=== PATIENT | male | born 1985 | race American Indian/Alaskan Native ===

== ENCOUNTER 2018-03-27 08:50 | Emergency (ER) | payer SELFPAY ==
[2018-03-27 09:09] VITALS: BP 135/90
--- NOTE | 2018-03-27 09:57 | Ultrasound Report ---
Testicle ultrasound: Recurrent left testicular pain. The right testicle measures 2.1 x 2.5 x 4 cm in size. There is normal blood flow with color imaging and Doppler and a normal echogenic pattern. The epididymis measures 1 cm in maximum dimension. The left testicle measures 2 x 2 0.9 x 4 cm. It also has a normal echogenic pattern with normal blood flow. The epididymis measures 11 mm in size. A very small amount of fluid is identified around the epididymis. Impressions: No significant pathology identified.
--- NOTE | 2018-03-27 11:13 | Emergency Department Report ---
ED General Adult HPI - General Chief complaint: Urogenital-Male Stated complaint: SCROTUM PAIN Time Seen by Provider: 03/27/18 10:57 Source: patient Mode of arrival: Ambulatory Limitations: No Limitations - History of Present Illness Initial comments: Patient presents to the emergency department with a chief complaint of testicular pain left side for the last week. Patient was seen in the emergency department recently and given doxycycline without relief. Patient denies any injury to his testicles or any new vigorous activity -: Sudden Location: genitals Severity scale (0 -10): 5 Quality: aching Consistency: constant Improves with: none Worsens with: none Associated Symptoms: denies other symptoms Treatments Prior to Arrival: none - Related Data Previous Rx's Medication Instructions Recorded Last Taken Type Acetaminophen [Tylenol Arthritis] 650 mg PO Q6HR PRN #30 tablet.er 02/02/18 Unknown Rx Pantoprazole [Protonix TAB] 20 mg PO QDAY #30 tablet.dr 02/02/18 Unknown Rx Doxycycline Hyclate [Doxycycline 100 mg PO Q12HR 14 Days #28 tab 03/16/18 Unknown Rx Hyclate TAB] Ibuprofen [Motrin] 800 mg PO Q8HR PRN #30 tablet 03/27/18 Unknown Rx levoFLOXacin [Levaquin TAB] 500 mg PO BID #20 tablet 03/27/18 Unknown Rx traMADol [Ultram] 50 mg PO Q6HR PRN #20 tablet 03/27/18 Unknown Rx Allergies Allergy/AdvReac Type Severity Reaction Status Date / Time No Known Allergies Allergy Verified 03/16/18 09:20 ED Review of Systems ROS: Stated complaint: SCROTUM PAIN Other details as noted in HPI Comment: All other systems reviewed and negative Constitutional: denies: chills, fever Eyes: denies: eye pain, eye discharge, vision change ENT: denies: ear pain, throat pain Respiratory: denies: cough, shortness of breath, wheezing Cardiovascular: denies: chest pain, palpitations Endocrine: no symptoms reported Gastrointestinal: denies: abdominal pain, nausea, diarrhea Genitourinary: testicular pain. denies: urgency, dysuria Musculoskeletal: denies: back pain, joint swelling, arthralgia Skin: denies: rash, lesions Neurological: denies: headache, weakness, paresthesias Psychiatric: denies: anxiety, depression Hematological/Lymphatic: denies: easy bleeding, easy bruising ED Past Medical Hx - Past Medical History Previous Medical History?: Yes - Surgical History Past Surgical History?: Yes - Social History Smoking Status: Never Smoker Substance Use Type: None - Medications Home Medications: Home Medications Medication Instructions Recorded Confirmed Last Taken Type Acetaminophen [Tylenol Arthritis] 650 mg PO Q6HR PRN #30 tablet.er 02/02/18 Unknown Rx Pantoprazole [Protonix TAB] 20 mg PO QDAY #30 tablet.dr 02/02/18 Unknown Rx Doxycycline Hyclate [Doxycycline 100 mg PO Q12HR 14 Days #28 tab 03/16/18 Unknown Rx Hyclate TAB] Ibuprofen [Motrin] 800 mg PO Q8HR PRN #30 tablet 03/27/18 Unknown Rx levoFLOXacin [Levaquin TAB] 500 mg PO BID #20 tablet 03/27/18 Unknown Rx traMADol [Ultram] 50 mg PO Q6HR PRN #20 tablet 03/27/18 Unknown Rx ED Physical Exam - General Limitations: No Limitations General appearance: alert, in no apparent distress - Head Head exam: Present: atraumatic, normocephalic - Eye Eye exam: Present: normal appearance, PERRL, EOMI - ENT ENT exam: Present: mucous membranes moist - Neck Neck exam: Present: normal inspection - Respiratory Respiratory exam: Present: normal lung sounds bilaterally. Absent: respiratory distress, wheezes, rales, rhonchi - Cardiovascular Cardiovascular Exam: Present: regular rate, normal rhythm. Absent: systolic murmur, diastolic murmur, rubs, gallop - GI/Abdominal GI/Abdominal exam: Present: soft, normal bowel sounds. Absent: distended, tenderness - Rectal Rectal exam: Present: deferred - exam: Present: other (deferred) - Extremities Exam Extremities exam: Present: normal inspection - Back Exam Back exam: Present: normal inspection - Neurological Exam Neurological exam: Present: alert, oriented X3 - Psychiatric Psychiatric exam: Present: normal affect, normal mood - Skin Skin exam: Present: warm, dry, intact, normal color. Absent: rash ED Course Vital Signs 03/27/18 09:04 Temperature 97.8 F Pulse Rate 64 Respiratory 18 Rate Blood Pressure 135/90 O2 Sat by Pulse 97 Oximetry ED Medical Decision Making - Radiology Data Radiology results: report reviewed - Medical Decision Making Discussed results with the patient Critical care attestation.: If time is entered above; I have spent that time in minutes in the direct care of this critically ill patient, excluding procedure time. ED Disposition Clinical Impression: Epididymitis, Testicular pain, left Disposition: TO HOME OR SELFCARE Is pt being admited?: No Does the pt Need Aspirin: No Condition: Stable Instructions: Epididymitis (ED) Additional Instructions: return if worse Prescriptions: Ibuprofen [Motrin] 800 mg PO Q8HR PRN #30 tablet PRN Reason: pain levoFLOXacin [Levaquin TAB] 500 mg PO BID #20 tablet traMADol [Ultram] 50 mg PO Q6HR PRN #20 tablet PRN Reason: Pain Referrals: LAMONT TREVIÑO MD [Primary Care Provider] - 3-5 Days Time of Disposition: 11:12
== END 2018-03-27 11:28 | disposition home or self-care (01) ==
LOC: ED 08:50
DX: N45.1 Epididymitis (principal)
CPT/HCPCS: 93975

== ENCOUNTER 2018-05-19 06:08 | Day surgery (SDC) | payer OTHER ==
[2018-05-19] MEDS ORDERED: NACL 0.9% 500 ML 500 ML IV SCH (07:00)
[2018-05-19 07:05] LABS: Basophils # (Auto) 0.1 K/mm3 (0.0-0.1); Basophils % (Auto) 1.7 % (0.0-1.8); Eosinophils # (Auto) 0.2 K/mm3 (0.0-0.4); Eosinophils % (Auto) 4.2 % (0.0-4.3); Hemoglobin 16.3 gm/dl (11.8-15.2); Lymphocytes # (Auto) 2.6 K/mm3 (1.2-5.4); Lymphocytes % (Auto) 44.6 % (13.4-35.0); Monocytes # (Auto) 0.3 K/mm3 (0.0-0.8); Monocytes % (Auto) 5.1 % (0.0-7.3)
[2018-05-19 07:13] LABS: INR 0.82 (0.87-1.13)
[2018-05-19 07:20] LABS: BUN/Creatinine Ratio 11; Blood Urea Nitrogen 12 mg/dL (9-20); Calcium 9.4 mg/dL (8.4-10.2); Hemolysis Index 13
[2018-05-19 07:28] LABS: Hematocrit 47.8 % (35.5-45.6); Mean Corpuscular HGB Conc 34 % (32-34); Mean Corpuscular Hemoglobin 31 pg (28-32); Mean Corpuscular Volume 91 fl (84-94); Platelet Count 229 K/mm3 (140-440); Red Blood Count 5.28 M/mm3 (3.65-5.03); Red Cell Distribution Width 13.4 % (13.2-15.2)
[2018-05-19] MEDS ORDERED: ECOTRIN PO ONE (08:00)
[2018-05-19] MEDS ORDERED: HEPARIN 10,000 UNITS/10 ML ONE (08:39)
[2018-05-19] MEDS ORDERED: CALAN ONE (08:39)
[2018-05-19] MEDS ORDERED: HEPARIN/NS 5000 UNIT/500ML(CATH LAB) 1,000 ML IR ONE (08:39)
[2018-05-19] MEDS ORDERED: NITROGLYCERIN SYRINGE 3 ML ONE (08:40)
[2018-05-19] MEDS ORDERED: SUBLIMAZE ONE (08:40)
[2018-05-19] MEDS ORDERED: VERSED ONE (08:40)
[2018-05-19] MEDS ORDERED: XYLOCAINE 2% INFILTRATI ONE (08:40)
--- NOTE | 2018-05-19 10:34 | Cardiac Catherization Report ---
REFERRING PHYSICIAN: Dr. Mora. INDICATION FOR PROCEDURE: The patient is a 32-year-old -[place] male with recurrent chest pain, typical and atypical features, referred for left heart catheterization by Dr. Mora. Risks, benefits, and alternatives discussed at length prior to obtaining informed consent. PROCEDURE IN DETAIL: The patient was brought to the catheterization lab in a postabsorptive state, prepped and draped in a sterile fashion. Fred's test in the right hand was normal. A 2 mL of 2% lidocaine was used to anesthetize the right wrist. A standard 6-Swazi hydrophilic sheath used to cannulate right radial artery via modified Seldinger technique. All exchanges performed to exchange a J-tip guidewire. JL3.5 catheter used to engage the left main. No dampening or ventricularization. Cineangiography performed in all projections. JR4 catheter was used to cross the aortic valve under fluoroscopic guidance. Left ventriculography performed 30 SLADE and 30 MARGIE projections via hand injections, catheter flushed. Manual pullback performed with continuous pressure monitoring. Catheter used to engage the right coronary. No dampening or ventricularization. Cineangiography performed in all projections. Next, a pigtail catheter was used for root aortography in the MARGIE projection with power injector. Next, catheter removed. Guidewire sheath removed. Manual pressure to achieve hemostasis. DATA: Aortic pressure is 100/70, LV pressure is 100. LVEDP of 18 mmHg. Left ventriculography reveals normal systolic performance with estimated ejection fraction of 55%-60%. The patient remained in normal sinus rhythm throughout the procedure. Left main is a short vessel, no significant disease, bifurcates left anterior descending and left circumflex. LAD is a moderate sized vessel, courses anterior intergroove, wraps around the apex, no significant disease. Left circumflex is a moderate sized vessel, courses AV groove. No significant disease. Right coronary is a moderate sized vessel, courses AV groove. No significant disease. Root aortography reveals normal contour. Normal great vessel anatomy, no dissection or penetrating aortic ulcer. I directly supervised the administration of moderate sedation from 9:16 to 9:42 a.m. with Versed and fentanyl. CONCLUSIONS: 1. No angiographic evidence of significant epicardial coronary artery disease in this right dominant system. 2. Normal left ventricular systolic performance, estimated ejection fraction of 55% to 60%. 3. No evidence of aortic stenosis. 4. Normal LVEDP. 5. Normal root aortography without evidence of dissection, penetrating aortic ulcer, or aortic insufficiency. The patient is clinically stable, chest pain free. We will check a V/Q scan due to recurrent chest pain and aforementioned findings. Follow up with Dr. Mora in the office. Standard radial care. Discussed my findings with the patient and his at length. All questions and concerns were addressed. JOB# [id number] SBM/NTS
--- NOTE | 2018-05-19 10:59 | XRay Report ---
AP CHEST: HISTORY: Chest pain, shortness of breath AP view of the chest demonstrates a normal mediastinal and cardiac contour with clear lungs and normal bony and soft tissue structures. IMPRESSION: Unremarkable AP chest. No change since 02/02/18.
--- NOTE | 2018-05-19 11:46 | Nuclear Medicine Report ---
LUNG SCAN, VENTILATION AND PERFUSION: History: Chest pain. Technique: 5mci of Tc99m MAA was infused for the perfusion images. 15mci XE 133 gas was inhaled for the ventilatory images. Correlation is made with a chest x-ray dated 05/19/18. Findings: Inhalation of Xenon gas demonstrates a normal distribution of the activity throughout both lungs. The wash out phases show no focal retention of activity. After injection of Technetium 99m macroaggregated albumin gamma camera imaging of the lungs in multiple projections demonstrates normal pulmonary contours with a homogeneous distribution of activity. No focal areas of perfusion deficiency are identified. IMPRESSION: Low probability for pulmonary embolus.
[2018-05-19 12:16] VITALS: BP 121/77
== END 2018-05-19 12:35 | disposition home or self-care (01) ==
LOC: CATHLABREC 06:08
PROVIDERS: ATTEND Internal Medicine
DX: R07.89 Other chest pain (principal); R06.02 Shortness of breath; I26.99 Other pulmonary embolism without acute cor pulmonale; Z79.899 Other long term (current) drug therapy
CPT/HCPCS: 36415; 71045; 78582; 80048; 85025; 85610; 85730; 93005; 93010; 93458; 93567; 99156; 99157; A9540; A9558; C1894; J1644; J2250; J3010; J7040; Q9967

== ENCOUNTER 2019-08-24 07:15 | Emergency (ER) | payer OTHER ==
--- NOTE | 2019-08-24 08:10 | Ultrasound Report ---
EXAMINATION: Testicular/scrotal ultrasound, 08/24/2019 CLINICAL INFORMATION: The patient reports left testicular pain for several days. He denies pain at th e time of today's evaluation. COMPARISON: Testicular/scrotal ultrasound, 03/27/2018 FINDINGS: Both testicles are normal in size and echogenicity. The right testicle measures 3.9 x 2.3 x 2.9 cm. T he left testicle measures 4.3 x 2.0 x 3.1 cm. There is symmetric Doppler flow demonstrated to both testicles. No abnormal fluid collection is identified. IMPRESSION: No sonographic abnormality of the testicles or scrotum. Signer Name: Berenice Hatch MD Signed: 08/24/2019 8:06 AM Workstation Name: [email or web address]
[2019-08-24 08:49] LABS: Mucus,Urine 1+ /HPF; WBC,Urine < 1.0 /HPF (0.0-6.0)
[2019-08-24 08:57] LABS: Bilirubin,Urine Negative (Negative); Color,Urine Yellow (Yellow)
[2019-08-24 08:58] LABS: Blood,Urine Negative (Negative); Ictotest,Urine Negative (Negative); Protein,Urine <15 mg/dL mg/dL (Negative); Urobilinogen,Urine < 2.0 mg/dL (<2.0)
--- NOTE | 2019-08-24 09:44 | Emergency Department Report ---
ED Male HPI - General Chief complaint: Urogenital-Male Stated complaint: LEFT TESTICLE PAIN Time Seen by Provider: 08/24/19 09:15 Source: patient Mode of arrival: Ambulatory Limitations: No Limitations - History of Present Illness Initial comments: This is a 33-year-old male presents the ED complaining of left-sided testicular pain times 3 to 4 days. Patient denies dysuria, penile discharge, blood in the urine or any other symptoms. Patient states that pain is localized to left testicle only and not denies. Patient states he saw her doctor at a clinic yesterday that prescribed him Motrin but he has not picked up The prescription MD Complaint: testicle pain - Related Data Previous Rx's Medication Instructions Recorded Last Taken Type Ciprofloxacin HCl [Ciprofloxacin 500 mg PO Q12HR #10 tab 08/24/19 Unknown Rx TAB] Allergies Allergy/AdvReac Type Severity Reaction Status Date / Time No Known Allergies Allergy Verified 03/16/18 09:20 ED Review of Systems ROS: Stated complaint: LEFT TESTICLE PAIN Other details as noted in HPI Comment: All other systems reviewed and negative ED Past Medical Hx - Past Medical History Previous Medical History?: No Hx HIV: No - Surgical History Past Surgical History?: No - Social History Smoking Status: Never Smoker Substance Use Type: None - Medications Home Medications: Home Medications Medication Instructions Recorded Confirmed Last Taken Type Ciprofloxacin HCl [Ciprofloxacin 500 mg PO Q12HR #10 tab 08/24/19 Unknown Rx TAB] ED Physical Exam - General Limitations: No Limitations General appearance: alert, in no apparent distress - Head Head exam: Present: atraumatic, normocephalic - Eye Eye exam: Present: normal appearance - ENT ENT exam: Present: mucous membranes moist - Neck Neck exam: Present: normal inspection - Respiratory Respiratory exam: Present: normal lung sounds bilaterally. Absent: respiratory distress - Cardiovascular Cardiovascular Exam: Present: regular rate, normal rhythm. Absent: systolic murmur, diastolic murmur, rubs, gallop - GI/Abdominal GI/Abdominal exam: Present: soft, normal bowel sounds. Absent: distended, tenderness - Rectal Rectal exam: Present: deferred - exam: Present: normal inspection, testicular tenderness (Mild left-sided), circumcision. Absent: urethral discharge, scrotal swelling External exam: Present: normal external exam. Absent: erythema, swelling, lesions, lacerations - Extremities Exam Extremities exam: Present: normal inspection - Back Exam Back exam: Present: normal inspection - Neurological Exam Neurological exam: Present: alert, oriented X3 - Psychiatric Psychiatric exam: Present: normal affect, normal mood - Skin Skin exam: Present: warm, dry, intact, normal color. Absent: rash ED Course Vital Signs 08/24/19 08/24/19 07:15 09:20 Temperature 97.6 F Pulse Rate 68 Respiratory 18 18 Rate Blood Pressure 128/90 O2 Sat by Pulse 96 99 Oximetry ED Medical Decision Making - Radiology Data Radiology results: report reviewed, image reviewed EXAMINATION: Testicular/scrotal ultrasound, 08/24/2019 CLINICAL INFORMATION: The patient reports left testicular pain for several days. He denies pain at the time of today's evaluation. COMPARISON: Testicular/scrotal ultrasound, 03/27/2018 FINDINGS: Both testicles are normal in size and echogenicity. The right testicle measures 3.9 x 2.3 x 2.9 cm. The left testicle measures 4.3 x 2.0 x 3.1 cm. There is symmetric Doppler flow demonstrated to both testicles. No abnormal fluid collection is identified. IMPRESSION: No sonographic abnormality of the testicles or scrotum. Signer Name: Berenice Hatch MD Signed: 08/24/2019 8:06 AM Workstation Name: [id number] Transcribed By: EB Dictated By: Berenice Hatch MD Electronically Authenticated By: Berenice Hatch MD Signed Date/Time: 08/24/19 0806 - Medical Decision Making 33-year-old male presents with left-sided testicular pain. ED course: Is obtained, urinalysis negative Testicular ultrasound was completed with normal findings see report above Discussed findings with the patient. Discussed with patient to take Motrin as needed for pain. Discussed the follow-up with the health department for further STD testing. Patient's alert and oriented times 3. Vital signs are normal patient is in no acute discharge. Patient will be discharged home with instructions. Critical care attestation.: If time is entered above; I have spent that time in minutes in the direct care of this critically ill patient, excluding procedure time. ED Disposition Clinical Impression: Testicular pain, left Disposition: DC-01 TO HOME OR SELFCARE Is pt being admited?: No Does the pt Need Aspirin: No Condition: Stable Instructions: Testicle Pain (ED) Additional Instructions: Make sure to follow up with the primary care physician as discussed. Take all your medications as you've been prescribed. If you have any worsening symptoms or develop new symptoms please return to ED immediately. Prescriptions: Ciprofloxacin HCl [Ciprofloxacin TAB] 500 mg PO Q12HR #10 tab Referrals: PRIMARY CARE, [Primary Care Provider] - 3-[address] [facility] [Outside] - 3-5 Days [facility] [Outside] - 3-5 Days Forms: Work/School Release Form(ED) Time of Disposition: 09:51
[2019-08-24 10:30] VITALS: BP 142/71
== END 2019-08-24 10:21 | disposition home or self-care (01) ==
LOC: ED 07:15
DX: N50.812 Left testicular pain (principal); Z79.899 Other long term (current) drug therapy
CPT/HCPCS: 81001; 93975

== ENCOUNTER 2019-11-17 07:12 | Emergency (ER) | payer OTHER ==
[2019-11-17 07:22] VITALS: BP 140/96
--- NOTE | 2019-11-17 07:47 | Emergency Department Report ---
ED General Adult HPI - General Chief complaint: Pain General Stated complaint: right groin pain Time Seen by Provider: 11/17/19 07:28 Source: patient Mode of arrival: Ambulatory Limitations: No Limitations - History of Present Illness Initial comments: 34-year-old male presents to the emergency room complaining of right groin pain started yesterday the pain is relieved with ibuprofen. He denies any trauma or heavy lifting. The pain worsens with palpation but does not change with movement. Patient denies testicular pain he denies painful urination or any difficulties with urinating, denies nausea vomiting no abdominal pain no penile discharge no rashes or lesion. -: days(s) (1) Quality: aching Consistency: intermittent Improves with: medication (ibuprofen ) Worsens with: other (palpation) Associated Symptoms: denies: denies other symptoms, confusion, chest pain, cough, diaphoresis, headaches, loss of appetite, malaise, nausea/vomiting, rash, shortness of breath, syncope, weakness, other Treatments Prior to Arrival: NSAID - Related Data Previous Rx's Medication Instructions Recorded Last Taken Type Ciprofloxacin HCl [Ciprofloxacin 500 mg PO Q12HR #10 tab 08/24/19 Unknown Rx TAB] Ibuprofen [Motrin] 600 mg PO Q8H PRN #20 tablet 11/17/19 Unknown Rx Allergies Allergy/AdvReac Type Severity Reaction Status Date / Time No Known Allergies Allergy Verified 03/16/18 09:20 ED Review of Systems ROS: Stated complaint: LOWER ABD PAIN Other details as noted in HPI Comment: All other systems reviewed and negative Constitutional: denies: chills, fever, malaise Eyes: denies: eye pain, eye discharge, vision change ENT: denies: ear pain, throat pain, dental pain Respiratory: denies: cough, orthopnea Cardiovascular: denies: chest pain, palpitations, dyspnea on exertion, orthopnea Endocrine: denies: excessive sweating, flushing, unexplained weight gain Gastrointestinal: denies: abdominal pain, nausea, vomiting, constipation, hematemesis, melena Genitourinary: denies: urgency, dysuria, frequency, hematuria, discharge, testicular pain, testicular mass, other Skin: denies: rash, lesions, change in color Neurological: denies: headache, weakness, confusion Psychiatric: denies: as per HPI, depression ED Past Medical Hx - Past Medical History Previous Medical History?: No Hx HIV: No - Surgical History Past Surgical History?: No - Social History Smoking Status: Never Smoker Substance Use Type: Non Opiate Pain - Medications Home Medications: Home Medications Medication Instructions Recorded Confirmed Last Taken Type Ciprofloxacin HCl [Ciprofloxacin 500 mg PO Q12HR #10 tab 08/24/19 Unknown Rx TAB] Ibuprofen [Motrin] 600 mg PO Q8H PRN #20 tablet 11/17/19 Unknown Rx ED Physical Exam - General Limitations: No Limitations General appearance: alert, in no apparent distress - Eye Eye exam: Present: normal appearance - ENT ENT exam: Present: mucous membranes moist - Respiratory Respiratory exam: Present: normal lung sounds bilaterally - Cardiovascular Cardiovascular Exam: Present: regular rate, normal heart sounds - GI/Abdominal GI/Abdominal exam: Present: soft, normal bowel sounds. Absent: distended, tenderness - exam: Present: normal inspection, other (right groin tenderness with palpation, no mass palpated, no signs of henia, no bulging noted with forceful cough ). Absent: testicular tenderness, urethral discharge, scrotal swelling, vertical testicular lie - Extremities Exam Extremities exam: Present: normal inspection, normal capillary refill, other (bilateral straight leg raises does not cause pain ) - Back Exam Back exam: Present: normal inspection - Neurological Exam Neurological exam: Present: alert, oriented X3 - Psychiatric Psychiatric exam: Present: normal affect - Skin Skin exam: Present: warm, dry, intact, normal color ED Course Vital Signs 11/17/19 07:20 Temperature 98.3 F Pulse Rate 71 Respiratory 18 Rate Blood Pressure 140/96 O2 Sat by Pulse 97 Oximetry ED Medical Decision Making - Medical Decision Making 34-year-old male with right groin pain not associated with testicular pain swelling rashes or lesions . He has no abdominal pain. No GI or unriary symptoms. Pain is relieved with ibuprofen suggesting that it is most likely a strain. Urinalysis neg for blood or signs of infection. On examination there are no signs of hernia no masses no rashes no swelling,mild tenderness present with deep palpation . Critical Care Time: No Critical care attestation.: If time is entered above; I have spent that time in minutes in the direct care of this critically ill patient, excluding procedure time. ED Disposition Clinical Impression: Groin injury Qualifiers: Encounter type: initial encounter Qualified Code(s): S39.91XA - Unspecified injury of abdomen, initial encounter Disposition: DC-01 TO HOME OR SELFCARE Is pt being admited?: No Does the pt Need Aspirin: No Condition: Stable Instructions: Groin Strain (ED) Additional Instructions: No heavy lifting apply warm compress continue to take ibuprofen as needed for pain return to the emergency room for any increasing pain swelling testicular pain fever chills abdominal pain inability to urinate Prescriptions: Ibuprofen [Motrin] 600 mg PO Q8H PRN #20 tablet PRN Reason: Pain Referrals: PRIMARY CAREMD [Primary Care Provider] - 3-5 Days KAY HODGES MD [Staff Physician] - 3-5 Days Time of Disposition: 08:28
[2019-11-17] MEDS ORDERED: IBUPROFEN 800 MG TAB PO ONE (07:51)
[2019-11-17 07:57] LABS: Bilirubin,Urine NEG (Negative); Blood,Urine NEG (Negative); Color,Urine Yellow (Yellow); Mucus,Urine FEW /HPF; Protein,Urine <15 mg/dL mg/dL (Negative); Urobilinogen,Urine < 2.0 mg/dL (<2.0); WBC,Urine < 1.0 /HPF (0.0-6.0)
== END 2019-11-17 08:38 | disposition home or self-care (01) ==
LOC: ED 07:12
DX: S39.91XA Unspecified injury of abdomen, initial encounter (principal); X58.XXXA Exposure to other specified factors, initial encounter; Y93.89 Activity, other specified; Y92.89 Other specified places as the place of occurrence of the external cause; Y99.8 Other external cause status
CPT/HCPCS: 81001

== ENCOUNTER 2019-12-30 07:31 | Emergency (ER) | payer OTHER ==
[2019-12-30 07:33] VITALS: BP 135/95
[2019-12-30 08:20] LABS: Bilirubin,Urine NEG (Negative); Blood,Urine NEG (Negative); Color,Urine Yellow (Yellow); Mucus,Urine 1+ /HPF; Protein,Urine <15 mg/dL mg/dL (Negative); Urobilinogen,Urine < 2.0 mg/dL (<2.0); WBC,Urine < 1.0 /HPF (0.0-6.0)
--- NOTE | 2019-12-30 09:28 | Ultrasound Report ---
Ultrasound scrotum INDICATION: Testicular pain COMPARISON: 08/24/2019 FINDINGS: Right testicle measures 4.5 cm in length. The left testicle measures 4.2 cm in length. Ther e is arterial flow in both testicles. No mass lesions are seen. There is no free fluid. There has bee n no significant interval change. IMPRESSION: There is normal arterial flow in both testicles. Ultrasound is within normal limits. Signer Name: Frank Werner MD Signed: 12/30/2019 9:23 AM Workstation Name: [id number]
--- NOTE | 2019-12-30 10:06 | Emergency Department Report ---
ED Male HPI - General Chief complaint: Abdominal Pain Stated complaint: ABD PAIN Time Seen by Provider: 12/30/19 07:37 Source: patient Mode of arrival: Ambulatory Limitations: No Limitations - History of Present Illness Initial comments: This is a 34-year-old male nontoxic, well nourished in appearance, no acute signs of distress presents to the ED with c/o of left testicular pain x1 day. Patient stated that he had oral sex and developed pain. Patient denies any injuries or trauma. Patient denies any penile discharge, bleeding, ulcers or lesions. Patient denies any back pain. Patient denies any pelvic or abdominal pain. Patient denies any nausea, vomiting, chest pain, shortness of breathe, fever, chills, headache, back pain, numbness, tingling, stiff neck. Patient denies any urinary symptoms. Patient denies any allergies or PMH. MD Complaint: testicle pain (left) -: days(s) Location: left testicle Radiation: none Severity: mild Severity scale (0 -10): 3 Quality: aching Consistency: constant Improves with: none Worsens with: none denies other symptoms. denies: discharge, swelling, mass, rash, urinary retention, blood in urine, dysuria, fever, nausea/vomiting, incontinence - Related Data Previous Rx's Medication Instructions Recorded Last Taken Type Ciprofloxacin HCl [Ciprofloxacin 500 mg PO Q12HR #10 tab 08/24/19 Unknown Rx TAB] Ibuprofen [Motrin] 600 mg PO Q8H PRN #20 tablet 11/17/19 Unknown Rx Allergies Allergy/AdvReac Type Severity Reaction Status Date / Time No Known Allergies Allergy Verified 03/16/18 09:20 ED Review of Systems ROS: Stated complaint: ABD PAIN Other details as noted in HPI Comment: All other systems reviewed and negative Constitutional: denies: chills, fever Eyes: denies: eye pain, eye discharge, vision change ENT: denies: ear pain, throat pain Respiratory: denies: cough, shortness of breath, wheezing Cardiovascular: denies: chest pain, palpitations Endocrine: no symptoms reported Gastrointestinal: denies: abdominal pain, nausea, diarrhea Genitourinary: testicular pain. denies: urgency, dysuria, frequency, hematuria, discharge, testicular mass Musculoskeletal: denies: back pain, joint swelling, arthralgia Skin: denies: rash, lesions Neurological: denies: headache, weakness, paresthesias Psychiatric: denies: anxiety, depression Hematological/Lymphatic: denies: easy bleeding, easy bruising ED Past Medical Hx - Past Medical History Previous Medical History?: No Hx HIV: No - Surgical History Past Surgical History?: No - Social History Smoking Status: Never Smoker Substance Use Type: None - Medications Home Medications: Home Medications Medication Instructions Recorded Confirmed Last Taken Type Ciprofloxacin HCl [Ciprofloxacin 500 mg PO Q12HR #10 tab 08/24/19 Unknown Rx TAB] Ibuprofen [Motrin] 600 mg PO Q8H PRN #20 tablet 11/17/19 Unknown Rx ED Physical Exam - General Limitations: No Limitations General appearance: alert, in no apparent distress - Head Head exam: Present: atraumatic, normocephalic - Eye Eye exam: Present: normal appearance - Neck Neck exam: Present: normal inspection, full ROM. Absent: tenderness, meningismus, lymphadenopathy - Respiratory Respiratory exam: Absent: respiratory distress - Cardiovascular Cardiovascular Exam: Present: regular rate - GI/Abdominal GI/Abdominal exam: Present: soft, normal bowel sounds. Absent: distended, tenderness, guarding, rebound, rigid, diminished bowel sounds - exam: Present: normal inspection. Absent: testicular tenderness, urethral discharge, scrotal swelling, vertical testicular lie, circumcision External exam: Present: normal external exam. Absent: erythema, swelling, lesions, lacerations, ecchymosis, bleeding - Extremities Exam Extremities exam: Present: full ROM - Back Exam Back exam: Present: normal inspection, full ROM. Absent: tenderness, CVA tenderness (R), CVA tenderness (L), muscle spasm, paraspinal tenderness, vertebral tenderness, rash noted - Neurological Exam Neurological exam: Present: alert, oriented X3, normal gait - Psychiatric Psychiatric exam: Present: normal affect, normal mood - Skin Skin exam: Present: warm, dry, intact, normal color. Absent: rash ED Course Vital Signs 12/30/19 07:32 Temperature 98.1 F Pulse Rate 69 Respiratory 20 Rate Blood Pressure 135/95 [Right] O2 Sat by Pulse 100 Oximetry - Reevaluation(s) Reevaluation #1: 12/30/19 10:09 Patient is speaking in full sentences with no signs of distress noted. ED Medical Decision Making - Lab Data Lab Results 12/30/19 Range/Units 07:56 Urine Color Yellow (Yellow) Urine Turbidity Clear (Clear) Urine pH 6.0 (5.0-7.0) Ur Specific [place] 1.025 (1.003-1.030) Urine Protein <15 mg/dl (Negative) mg/dL Urine Glucose (UA) Neg (Negative) mg/dL Urine Ketones Neg (Negative) mg/dL Urine Blood Neg (Negative) Urine Nitrite Neg (Negative) Urine Bilirubin Neg (Negative) Urine Urobilinogen < 2.0 (<2.0) mg/dL Ur Leukocyte Esterase Neg (Negative) Urine WBC (Auto) < 1.0 (0.0-6.0) /HPF Urine RBC (Auto) 6.0 (0.0-6.0) /HPF Urine Mucus 1+ /HPF - Radiology Data Referring Physician: OLGA LIDIA ALLAN Patient Name: AYESHA GARCIA Date of : 1985 Sex: Male Report Date: 2019-12-30 Report Status: [place] [address] Ultrasound Report Signed Patient: AYESHA GARCIA MR#: [id number] : 1985 Acct:[id number] Age/Sex: 34 / M ADM Date: 12/30/19 Loc: ED Attending Dr: Ordering Physician: OLGA LIDIA ALLAN NP Date of Service: 12/30/19 Procedure(s): US testicular doppler comp Accession Number(s): [id number] cc: OLGA LIDIA ALLAN NP Ultrasound scrotum INDICATION: Testicular pain COMPARISON: 08/24/2019 FINDINGS: Right testicle measures 4.5 cm in length. The left testicle measures 4.2 cm in length. There is arterial flow in both testicles. No mass lesions are seen. There is no free fluid. There has been no significant interval change. IMPRESSION: There is normal arterial flow in both testicles. Ultrasound is within normal limits. Signer Name: Frank Werner MD Signed: 12/30/2019 9:23 AM Workstation Name: [id number] Transcribed By: Dictated By: Frank Werner MD Electronically Authenticated By: Frank Werner MD Signed Date/Time: 12/30/19922 DD/ 0 TD/TT: - Medical Decision Making 34-year-old male the presents with left testicular pain. Patient is stable and was examined by me. Exam is unremarkable. Urine unremarkable. Ultrasound was notified to the patient with no questions noted by the patient. Patient was instructed to follow-up with a primary care doctor in 3-5 days or if symptoms worsen and continue return to emergency room as soon as possible. At time of discharge, the patient does not seem toxic or ill in appearance. No acute signs of distress noted. Patient agrees to discharge treatment plan of care. No further questions noted by the patient. Critical care attestation.: If time is entered above; I have spent that time in minutes in the direct care of this critically ill patient, excluding procedure time. ED Disposition Clinical Impression: Left testicular pain Disposition: DC-01 TO HOME OR SELFCARE Is pt being admited?: No Does the pt Need Aspirin: No Condition: Stable Instructions: Testicular Self-Exam, [id number] Additional Instructions: Follow-up with a primary care doctor in 3-5 days or if symptoms worsen and continue return to emergency room as soon as possible. Referrals: PRIMARY MD VJ [Primary Care Provider] - 3-5 Days KAY HODGES MD [Staff Physician] - 3-5 Days Forms: Work/School Release Form(ED)
== END 2019-12-30 10:19 | disposition home or self-care (01) ==
LOC: ED 07:31
DX: N50.812 Left testicular pain (principal)
CPT/HCPCS: 81001; 93975

== ENCOUNTER 2020-03-01 08:07 | Emergency (ER) | payer MEDICAID, OTHER ==
[2020-03-01] MEDS ORDERED: dexAMETHasone 20 MG/5 ML VIAL IM ONE (08:24)
[2020-03-01] MEDS ORDERED: KETOROLAC 30 MG/1 ML INJ IM ONE (08:24)
--- NOTE | 2020-03-01 08:43 | Emergency Department Report ---
ED Headache HPI - General Chief Complaint: Headache Stated Complaint: HEADACHE/SLEEPLESS - History of Present Illness Initial Comments: 34-year-old -[place] male patient presents with complaints of frontal headache x3 days. Patient states due to the headache he is unable to sleep. He describes the headache as dull and constant and rates it at a 10/10 in severity. He denies any history of migraines, head trauma, loss of consciousness, vision changes, nausea/vomiting, dizziness, confusion, memory loss, numbness/tingling/weakness in his limbs, or difficulty with speech/ambulation. Patient states headache has not improved with Tylenol. He denies any past medical history Timing/Duration: 1 week Quality: severe Head Injury Location: frontal Recent Head Trauma: no recent headache/trauma Associated Symptoms: denies symptoms Allergies/Adverse Reactions: Allergies No Known Allergies Allergy (Verified 03/16/18 09:20) Home Medications: Ambulatory Orders Ciprofloxacin HCl [Ciprofloxacin TAB] 500 mg PO Q12HR #10 tab 08/24/19 Ibuprofen [Motrin] 600 mg PO Q8H PRN #20 tablet 11/17/19 Butalb/Acetamin/Caff 50-325-40 [Fioricet 50-325-40] 1 tab PO Q8HR PRN #12 tablet 03/01/20 ED Review of Systems ROS: Stated complaint: HEADACHE/SLEEPLESS Other details as noted in HPI Constitutional: denies: chills, fever Respiratory: denies: cough, shortness of breath Cardiovascular: denies: chest pain Gastrointestinal: denies: abdominal pain, nausea, vomiting Musculoskeletal: denies: back pain Skin: denies: rash, change in color Neurological: headache. denies: numbness, paresthesias, confusion, abnormal gait Hematological/Lymphatic: denies: swollen glands ED Past Medical Hx - Past Medical History Previous Medical History?: No Hx HIV: No - Surgical History Past Surgical History?: No - Social History Smoking Status: Never Smoker - Medications Home Medications: Home Medications Medication Instructions Recorded Confirmed Last Taken Type Ciprofloxacin HCl [Ciprofloxacin 500 mg PO Q12HR #10 tab 08/24/19 Unknown Rx TAB] Ibuprofen [Motrin] 600 mg PO Q8H PRN #20 tablet 11/17/19 Unknown Rx Butalb/Acetamin/Caff 50-325-40 1 tab PO Q8HR PRN #12 tablet 03/01/20 Unknown Rx [Fioricet 50-325-40] ED Physical Exam - General Limitations: No Limitations General appearance: alert, in no apparent distress - Head Head exam: Present: atraumatic, normocephalic - Eye Eye exam: Present: normal appearance, PERRL, EOMI. Absent: scleral icterus - Neck Neck exam: Present: normal inspection - Respiratory Respiratory exam: Present: normal lung sounds bilaterally. Absent: respiratory distress - Cardiovascular Cardiovascular Exam: Present: regular rate, normal rhythm - Neurological Exam Neurological exam: Present: alert, oriented X3, CN II-XII intact, normal gait. Absent: motor sensory deficit - Expanded Neurological Exam Expanded Cerebellar function: Finger to Nose: Normal, Heel to Little: Normal, Romberg: N ormal Sensory exam: Upper Extremity Light Touch: Normal, Lower Extremity Light Touch: Normal Motor strength exam: RUE: 5, LUE: 5, RLE: 5, LLE: 5 - Psychiatric Psychiatric exam: Present: normal affect, normal mood - Skin Skin exam: Present: warm, dry, intact, normal color. Absent: rash ED Course Vital Signs 03/01/20 03/01/20 03/01/20 08:21 08:29 08:59 Temperature 97.9 F Pulse Rate 89 Respiratory 18 18 18 Rate Blood Pressure 123/83 Blood Pressure [Left] O2 Sat by Pulse 95 Oximetry 03/01/20 03/01/20 03/01/20 10:47 11:10 12:15 Temperature Pulse Rate 82 Respiratory 18 18 18 Rate Blood Pressure Blood Pressure 128/84 [Left] O2 Sat by Pulse 97 Oximetry ED Medical Decision Making - Lab Data Result diagrams: 03/01/20 08:38 03/01/20 08:42 Lab Results 03/01/20 03/01/20 Range/Units 08:38 08:42 WBC 5.2 (4.5-11.0) K/mm3 RBC 5.29 H (3.65-5.03) M/mm3 Hgb 16.6 H (11.8-15.2) gm/dl Hct 47.7 H (35.5-45.6) % MCV 90 (84-94) fl MCH 31 (28-32) pg MCHC 35 H (32-34) % RDW 13.0 L (13.2-15.2) % Plt Count 206 (140-440) K/mm3 Lymph % (Auto) 25.8 (13.4-35.0) % [place] % (Auto) 11.9 H (0.0-7.3) % Eos % (Auto) 0.3 (0.0-4.3) % Baso % (Auto) 0.4 (0.0-1.8) % Lymph # (Auto) 1.3 (1.2-5.4) K/mm3 [place] # (Auto) 0.6 (0.0-0.8) K/mm3 Eos # (Auto) 0.0 (0.0-0.4) K/mm3 Baso # (Auto) 0.0 (0.0-0.1) K/mm3 Seg Neutrophils % 61.6 (40.0-70.0) % Seg Neutrophils # 3.2 (1.8-7.7) K/mm3 Sodium 138 (137-145) mmol/L Potassium 3.9 (3.6-5.0) mmol/L Chloride 101.1 (98-107) mmol/L Carbon Dioxide 27 (22-30) mmol/L Anion Gap 14 mmol/L BUN 12 (9-20) mg/dL Creatinine 1.3 (0.8-1.3) mg/dL Estimated GFR > 60 ml/min BUN/Creatinine Ratio 9 % Glucose 121 H (75-100) mg/dL Calcium 8.9 (8.4-10.2) mg/dL Total Bilirubin 0.90 (0.1-1.2) mg/dL AST 29 (5-40) units/L ALT 25 (7-56) units/L Alkaline Phosphatase 106 (35-129) units/L Total Protein 7.2 (6.3-8.2) g/dL Albumin 4.0 (3.9-5) g/dL Albumin/Globulin Ratio 1.3 % - Radiology Data Radiology results: report reviewed CT BRAIN: 03/01/2020 INDICATION / CLINICAL INFORMATION: Headache.. COMPARISON: None available. FINDINGS: BRAIN/INTRACRANIAL STRUCTURES: Unenhanced CT images of the right demonstrate no evidence of acute intracranial abnormality. Ventricles and sulci are normal in size and shape. There is no evidence of ischemic injury, hemorrhage, or mass. There are no abnormal extra-axial fluid collections. Incidental note is made of some small subtle areas of hypodensity in the parietal deep white matter, with a nonspecific appearance. This may be prominent perivascular space (normal variant) or evidence of white matter lesions such as chronic small vessel ischemic change or demyelination. I would consider this to be of uncertain clinical significance. This could be further evaluated with MRI if necessary - Medical Decision Making 34-year-old -[place] male patient presents with complaints of frontal headache x3 days. Patient states due to the headache he is unable to sleep. He describes the headache as dull and constant and rates it at a 10/10 in severity. He denies any history of migraines, head trauma, loss of consciousness, vision changes, nausea/vomiting, dizziness, confusion, memory loss, numbness/tingling/weakness in his limbs, or difficulty with speech/ambulation. Patient states headache has not improved with Tylenol. He denies any past medical history Headache resolved with meds given here in ED. Patient neurologically intact. CT head negative for any acute abnormalities, however shows some white matter changes. Discussed need for outpatient follow-up with primary care for MRI of the brain. He is well-appearing and stable for discharge home. Strict return precautions were discussed in detail with patient who verbalized understanding. Critical care attestation.: If time is entered above; I have spent that time in minutes in the direct care of this critically ill patient, excluding procedure time. ED Disposition Clinical Impression: Abnormal finding on CT scan Acute tension headache Qualifiers: Intractability: not intractable Qualified Code(s): G44.209 - Tension-type headache, unspecified, not intractable Disposition: DC-01 TO HOME OR SELFCARE Is pt being admited?: No Condition: Stable Instructions: Tension Headache, Adult Additional Instructions: Please follow up with a primary care provider for MRI scan of your brain. Prescriptions: Butalb/Acetamin/Caff 50-325-40 [Fioricet 50-325-40] 1 tab PO Q8HR PRN #12 tablet PRN Reason: Headache Referrals: [facility] [Other] - 3-5 Days
[2020-03-01 09:11] LABS: Basophils % (Auto) 0.4 % (0.0-1.8); Eosinophils % (Auto) 0.3 % (0.0-4.3); Hematocrit 47.7 % (35.5-45.6); Hemoglobin 16.6 gm/dl (11.8-15.2); Lymphocytes # (Auto) 1.3 K/mm3 (1.2-5.4); Lymphocytes % (Auto) 25.8 % (13.4-35.0); Mean Corpuscular HGB Conc 35 % (32-34); Mean Corpuscular Volume 90 fl (84-94); Monocytes # (Auto) 0.6 K/mm3 (0.0-0.8); Monocytes % (Auto) 11.9 % (0.0-7.3); Platelet Count 206 K/mm3 (140-440); Red Blood Count 5.29 M/mm3 (3.65-5.03)
--- NOTE | 2020-03-01 09:11 | Cat Scan Report ---
CT BRAIN: 03/01/2020 INDICATION / CLINICAL INFORMATION: Headache.. COMPARISON: None available. FINDINGS: BRAIN/INTRACRANIAL STRUCTURES: Unenhanced CT images of the right demonstrate no evidence of acute int racranial abnormality. Ventricles and sulci are normal in size and shape. There is no evidence of ischemic injury, hemorrhage, or mass. There are no abnormal extra-axial fluid collections. Incidental note is made of some small subtle areas of hypodensity in the parietal deep white matter, with a nonspecific appearance. This may be prominent perivascular space (normal variant) or evidence of white matter lesions such as chronic small vessel ischemic change or demyelination. I would consid er this to be of uncertain clinical significance. This could be further evaluated with MRI if necessa ry EXTRACRANIAL STRUCTURES: Unremarkable. IMPRESSION: No acute abnormality. Subtle white matter hypodensities. All CT scans at this location are performed using dose reduction to ALARA by means of automated expos ure control. Signer Name: Fred Snyder MD Signed: 03/01/2020 9:07 AM Workstation Name: [id number]
[2020-03-01] MEDS ORDERED: METOCLOPRAMIDE 10 MG/2 ML INJ IV ONE (10:19)
[2020-03-01] MEDS ORDERED: diphenhydrAMINE 50 MG/ML VIAL IV ONE (10:19)
[2020-03-01 10:31] LABS: Alanine Aminotransferase 25 units/L (7-56); BUN/Creatinine Ratio 9; Blood Urea Nitrogen 12 mg/dL (9-20); Calcium 8.9 mg/dL (8.4-10.2); Hemolysis Index 33
[2020-03-01] MEDS ORDERED: BUTALB/ACETAMINOPHEN/CAFFEINE TAB PO STA (10:41)
[2020-03-01] MEDS ORDERED: SODIUM CHLORIDE 0.9% 1000 ML 1,000 ML ONE (10:43)
[2020-03-01] MEDS ORDERED: SODIUM CHLORIDE 0.9% 1000 ML 1,000 ML IV ONE (10:45)
[2020-03-01 12:53] VITALS: BP 128/84
== END 2020-03-01 12:15 | disposition home or self-care (01) ==
LOC: ED 08:07
DX: G44.209 Tension-type headache, unspecified, not intractable (principal); R93.89 Abnormal findings on diagnostic imaging of other specified body structures; Z79.899 Other long term (current) drug therapy
CPT/HCPCS: 36415; 70450; 80053; 85025; 96360; 96361; 96372; 99284; J1100; J1885; J7030; J1200; J2765

== ENCOUNTER 2020-03-04 07:13 | Emergency (ER) | payer SELFPAY ==
[2020-03-04] MEDS ORDERED: BUTALB/ACETAMINOPHEN/CAFFEINE TAB PO ONE (08:04)
[2020-03-04] MEDS ORDERED: KETOROLAC 10 MG TAB PO ONE (08:04)
[2020-03-04] MEDS ORDERED: dexAMETHasone 20 MG/5 ML VIAL IM ONE (08:04)
--- NOTE | 2020-03-04 08:05 | Emergency Department Report ---
- General Chief Complaint: Headache Stated Complaint: COVID SYMPTOMS Time Seen by Provider: 03/04/20 08:03 Source: patient Mode of arrival: Ambulatory Limitations: No Limitations - History of Present Illness Initial Comments: 34-year-old male with no significant past medical history presents to the ER today complaining of headache, loss of taste and smell. Patient states his symp toms started 2 days ago. Patient states that he is having difficulty sleeping due to his headache. He also reports mild cough. He denies any apparent fever, chills, shortness of breath GI or symptoms. He denies any apparent ill contacts or known COVID-19 contacts. MD Complaint: other (Headache; Loss of taste and smell) -: Sudden (2 days ago ) - Related Data Previous Rx's Medication Instructions Recorded Last Taken Type Ciprofloxacin HCl [Ciprofloxacin 500 mg PO Q12HR #10 tab 08/24/19 Unknown Rx TAB] Ibuprofen [Motrin] 600 mg PO Q8H PRN #20 tablet 11/17/19 Unknown Rx Azithromycin [Zithromax] 250 mg PO DAILY 5 Days tablet 03/04/20 Unknown Rx Butalb/Acetamin/Caff 50-325-40 1 tab PO Q8HR PRN #12 tablet 03/04/20 Unknown Rx [Fioricet 50-325-40] methylPREDNISolone [Medrol 4MG 4 mg PO DAILY #1 tab.ds.pk 03/04/20 Unknown Rx DOSEPAK (21 tabs)] Allergies Allergy/AdvReac Type Severity Reaction Status Date / Time No Known Allergies Allergy Verified 03/16/18 09:20 ED Review of Systems ROS: Stated complaint: COVID SYMPTOMS Other details as noted in HPI Constitutional: no symptoms reported. denies: chills, fever Eyes: denies: eye pain, eye discharge, vision change ENT: denies: ear pain, throat pain Respiratory: cough Cardiovascular: denies: chest pain, palpitations Endocrine: no symptoms reported Gastrointestinal: denies: abdominal pain, nausea, vomiting, diarrhea, constipation, hematochezia Genitourinary: denies: urgency, dysuria Musculoskeletal: denies: back pain, joint swelling, arthralgia Skin: denies: rash, lesions Neurological: headache Psychiatric: denies: anxiety, depression Hematological/Lymphatic: denies: easy bleeding, easy bruising ED Past Medical Hx - Past Medical History Previous Medical History?: No Hx HIV: No - Surgical History Past Surgical History?: No - Social History Smoking Status: Never Smoker - Medications Home Medications: Home Medications Medication Instructions Recorded Confirmed Last Taken Type Ciprofloxacin HCl [Ciprofloxacin 500 mg PO Q12HR #10 tab 08/24/19 Unknown Rx TAB] Ibuprofen [Motrin] 600 mg PO Q8H PRN #20 tablet 11/17/19 Unknown Rx Azithromycin [Zithromax] 250 mg PO DAILY 5 Days tablet 03/04/20 Unknown Rx Butalb/Acetamin/Caff 50-325-40 1 tab PO Q8HR PRN #12 tablet 03/04/20 Unknown Rx [Fioricet 50-325-40] methylPREDNISolone [Medrol 4MG 4 mg PO DAILY #1 tab.ds.pk 03/04/20 Unknown Rx DOSEPAK (21 tabs)] ED Physical Exam - General Limitations: No Limitations General appearance: alert, in no apparent distress, other (mildly ill appearing but overall not toxic and appears hydrated. ) - Head Head exam: Present: atraumatic, normocephalic, normal inspection - Eye Eye exam: Present: normal appearance, PERRL, EOMI Pupils: Present: normal accommodation - ENT ENT exam: Present: normal exam, mucous membranes moist - Neck Neck exam: Present: normal inspection, full ROM. Absent: meningismus - Respiratory Respiratory exam: Present: normal lung sounds bilaterally. Absent: respiratory distress - Cardiovascular Cardiovascular Exam: Present: regular rate, normal rhythm, normal heart sounds - GI/Abdominal GI/Abdominal exam: Present: soft. Absent: distended, tenderness - Back Exam Back exam: Present: normal inspection, full ROM - Neurological Exam Neurological exam: Present: alert, oriented X3, CN II-XII intact - Psychiatric Psychiatric exam: Present: normal affect, normal mood - Skin Skin exam: Present: intact ED Course Vital Signs 03/04/20 03/04/20 07:52 09:51 Temperature 98.0 F 97.9 F Pulse Rate 94 H Respiratory 18 Rate Blood Pressure 127/86 [Left] O2 Sat by Pulse 100 Oximetry ED Medical Decision Making - Radiology Data Radiology results: report reviewed - Medical Decision Making 34-year-old male with no significant past medical history presents to the ER today complaining of headache, loss of taste and smell. Patient states his symptoms started 2 days ago. Patient states that he is having difficulty sleeping due to his headache. He also reports mild cough. He denies any apparent fever, chills, shortness of breath GI or symptoms. He denies any apparent ill contacts or known COVID-[address] is negative for anything acute. Chest x-ray shows changes consistent with a viral pneumonia or atypical infection. Patient is not toxic or severely ill-appearing and he appears hydrated. He is awake alert oriented x3 without any neurological deficits on exam. Vital signs are normal, he is not hypoxic and there is no evidence of respiratory distress. Discussed imaging results with patient. Recommend that he follows up with an outpatient clinic to get the COVID-19 test done as his chest x-ray suspicious for it. Discussed treatment plan with patient. Discussed the need for quarantine with patient. Patient expressed understanding of instructions and agree with plan. Patient stable at time of discharge. Critical care attestation.: If time is entered above; I have spent that time in minutes in the direct care of this critically ill patient, excluding procedure time. ED Disposition Clinical Impression: Viral pneumonia, Viral syndrome Disposition: DC-01 TO HOME OR SELFCARE Is pt being admited?: No Does the pt Need Aspirin: No Condition: Stable Instructions: Viral Illness, Adult, Community-Acquired Pneumonia, Adult, [id number], Bacterial Pneumonia (ED) Additional Instructions: Take the antibiotics and medrol dose pack as prescribed. You will need to f/u with the clinic given on that list for outpatient COVID 19 testing. I recommend that you drink lots of fluids, take a multivitamin and rest. Follow up with your PCP. Return to ED if worse. Prescriptions: Butalb/Acetamin/Caff 50-325-40 [Fioricet 50-325-40] 1 tab PO Q8HR PRN #12 tablet PRN Reason: Headache methylPREDNISolone [Medrol 4MG DOSEPAK (21 tabs)] 4 mg PO DAILY #1 tab.ds.pk Azithromycin [Zithromax] 250 mg PO DAILY 5 Days tablet Referrals: PRIMARY CARE, [Primary Care Provider] - 3-5 Days Forms: Work/School Release Form(ED) Time of Disposition: 09:43
--- NOTE | 2020-03-04 08:47 | XRay Report ---
CHEST 2 VIEWS INDICATION / CLINICAL INFORMATION: cough/covid symptoms. COMPARISON: 05/19/2018 FINDINGS: SUPPORT DEVICES: None. HEART / MEDIASTINUM: Stable. LUNGS / PLEURA: Patchy hazy pulmonary opacities relatively sparing the apices. No significant effusio n. No pneumothorax. ADDITIONAL FINDINGS: No significant additional findings. IMPRESSION: 1. Findings suggestive of atypical/viral pneumonia. Recommend clinical correlation and continued foll ow-up until resolution. Signer Name: Cooper Lakhani MD Signed: 03/04/2020 8:42 AM Workstation Name: [id number]
--- NOTE | 2020-03-04 09:16 | Cat Scan Report ---
CT HEAD WITHOUT CONTRAST INDICATION / CLINICAL INFORMATION: Patient complains of a headache. TECHNIQUE: Axial imaging performed from the skull apex through the skull base without the use of cont rast. Sagittal and coronal reformatted images. All CT scans at this location are performed using CT dose reduction for ALARA by means of automated exposure control. COMPARISON: 03/01/2020 FINDINGS: CEREBRAL PARENCHYMA: No significant abnormality. Subtle areas of diminished attenuation in the pariet al white matter is again noted. No acute territorial infarct. HEMORRHAGE: None. EXTRA-AXIAL SPACES: Normal in size and morphology for the patient's age. VENTRICULAR SYSTEM: Normal in size and morphology for the patient's age. MIDLINE SHIFT OR HERNIATION: None. CEREBELLUM / BRAINSTEM: No significant abnormality. CALVARIUM: No significant abnormality. ORBITS: Normal as visualized. PARANASAL SINUSES / MASTOID AIR CELLS: Normal as visualized. SOFT TISSUES of HEAD: No significant abnormality. ADDITIONAL FINDINGS: None. IMPRESSION: No acute intracranial abnormality. No change since 03/01/2020. Signer Name: Norm Cloud Jr, MD Signed: 03/04/2020 9:11 AM Workstation Name: [id number]
[2020-03-04 09:53] VITALS: BP 127/86
== END 2020-03-04 10:18 | disposition home or self-care (01) ==
LOC: ED 07:13
DX: J12.9 Viral pneumonia, unspecified (principal); B34.9 Viral infection, unspecified; Z79.899 Other long term (current) drug therapy
CPT/HCPCS: 70450; 71046; 96372; 99284; J1100

== ENCOUNTER 2020-04-28 06:29 | Emergency (ER) | payer OTHER ==
[2020-04-28 06:36] VITALS: BP 129/85
--- NOTE | 2020-04-28 07:19 | Emergency Department Report ---
- General Chief complaint: Skin/Abscess/Foreign Body Stated complaint: LUMP IN CHEST Time Seen by Provider: 04/28/20 07:10 Source: patient Mode of arrival: Ambulatory Limitations: No Limitations - History of Present Illness Initial comments: This is a 34-year-old male nontoxic, well nourished in appearance, no acute signs of distress presents to the ED with c/o of lump to his chest that noticed yesterday. Patient stated he was playing video games and was touching his chest area which noticed a little lump. Patient otherwise denies any complaints of this. Patient denies any pain. Patient denies any pus or drainage. Patient denies any fever, chills, nausea, vomiting, chest pain, shortness of breath, headache or stiff neck. Patient denies any allergies or significant past medical history. -: days(s) Location: chest Severity scale (0 -10): 0 Improves with: none Worsens with: none Associated symptoms: denies other symptoms Treatments Prior to Arrival: none - Related Data Previous Rx's Medication Instructions Recorded Last Taken Type Ciprofloxacin HCl [Ciprofloxacin 500 mg PO Q12HR #10 tab 08/24/19 Unknown Rx TAB] Ibuprofen [Motrin] 600 mg PO Q8H PRN #20 tablet 11/17/19 Unknown Rx Azithromycin [Zithromax] 250 mg PO DAILY 5 Days tablet 03/04/20 Unknown Rx Butalb/Acetamin/Caff 50-325-40 1 tab PO Q8HR PRN #12 tablet 03/04/20 Unknown Rx [Fioricet 50-325-40] methylPREDNISolone [Medrol 4MG 4 mg PO DAILY #1 tab.ds.pk 03/04/20 Unknown Rx DOSEPAK (21 tabs)] Allergies Allergy/AdvReac Type Severity Reaction Status Date / Time No Known Allergies Allergy Verified 03/16/18 09:20 Abscess Boil HPI - HPI Chief Complaint: Skin/Abscess/Foreign Body Stated Complaint: LUMP IN CHEST Time Seen by Provider: 04/28/20 07:10 Home Medications: Previous Rx's Medication Instructions Recorded Last Taken Type Ciprofloxacin HCl [Ciprofloxacin 500 mg PO Q12HR #10 tab 08/24/19 Unknown Rx TAB] Ibuprofen [Motrin] 600 mg PO Q8H PRN #20 tablet 11/17/19 Unknown Rx Azithromycin [Zithromax] 250 mg PO DAILY 5 Days tablet 03/04/20 Unknown Rx Butalb/Acetamin/Caff 50-325-40 1 tab PO Q8HR PRN #12 tablet 03/04/20 Unknown Rx [Fioricet 50-325-40] methylPREDNISolone [Medrol 4MG 4 mg PO DAILY #1 tab.ds.pk 03/04/20 Unknown Rx DOSEPAK (21 tabs)] Allergies/Adverse Reactions: Allergies Allergy/AdvReac Type Severity Reaction Status Date / Time No Known Allergies Allergy Verified 03/16/18 09:20 ED Review of Systems ROS: Stated complaint: LUMP IN CHEST Other details as noted in HPI Constitutional: denies: chills, fever Eyes: denies: eye pain, eye discharge, vision change ENT: denies: ear pain, throat pain Respiratory: denies: cough, shortness of breath, wheezing Cardiovascular: denies: chest pain, palpitations Endocrine: no symptoms reported Gastrointestinal: denies: abdominal pain, nausea, diarrhea Genitourinary: denies: urgency, dysuria Musculoskeletal: denies: back pain, joint swelling, arthralgia Skin: denies: rash, lesions Neurological: denies: headache, weakness, paresthesias Psychiatric: denies: anxiety, depression Hematological/Lymphatic: denies: easy bleeding, easy bruising ED Past Medical Hx - Past Medical History Previous Medical History?: No Hx HIV: No - Surgical History Past Surgical History?: No - Social History Smoking Status: Never Smoker Substance Use Type: None - Medications Home Medications: Home Medications Medication Instructions Recorded Confirmed Last Taken Type Ciprofloxacin HCl [Ciprofloxacin 500 mg PO Q12HR #10 tab 08/24/19 Unknown Rx TAB] Ibuprofen [Motrin] 600 mg PO Q8H PRN #20 tablet 11/17/19 Unknown Rx Azithromycin [Zithromax] 250 mg PO DAILY 5 Days tablet 03/04/20 Unknown Rx Butalb/Acetamin/Caff 50-325-40 1 tab PO Q8HR PRN #12 tablet 03/04/20 Unknown Rx [Fioricet 50-325-40] methylPREDNISolone [Medrol 4MG 4 mg PO DAILY #1 tab.ds.pk 03/04/20 Unknown Rx DOSEPAK (21 tabs)] ED Physical Exam - General Limitations: No Limitations General appearance: alert, in no apparent distress - Head Head exam: Present: atraumatic, normocephalic - Eye Eye exam: Present: normal appearance - Neck Neck exam: Present: normal inspection, full ROM. Absent: tenderness, meningismus, lymphadenopathy - Respiratory Respiratory exam: Present: normal lung sounds bilaterally, other (Small about 1 cm mobile cyst. No induration or fluctuance. Nontender to touch. No cellulitis.). Absent: respiratory distress, wheezes, rales, rhonchi, stridor, chest wall tenderness, accessory muscle use, decreased breath sounds, prolonged expiratory - Cardiovascular Cardiovascular Exam: Present: normal rhythm - Extremities Exam Extremities exam: Present: full ROM - Back Exam Back exam: Present: full ROM - Neurological Exam Neurological exam: Present: alert, oriented X3, normal gait - Psychiatric Psychiatric exam: Present: normal affect, normal mood - Skin Skin exam: Present: warm, dry, intact, normal color. Absent: rash ED Course Vital Signs 04/28/20 04/28/20 06:33 06:36 Temperature 98.7 F Pulse Rate 75 Respiratory 17 Rate Blood Pressure 129/85 O2 Sat by Pulse 98 Oximetry - Reevaluation(s) Reevaluation #1: 04/28/20 07:18 Patient is speaking in full sentences with no signs of distress noted. ED Medical Decision Making - Medical Decision Making Patient is stable and was examined by me. Exam is unremarkable. Exam does consist of a mobile cyst with no tenderness. Patient was instructed to follow- up with a primary care doctor in 3-5 days or if symptoms worsen and continue return to emergency room as soon as possible. At time of discharge, the patient does not seem toxic or ill in appearance. No acute signs of distress noted. Patient agrees to discharge treatment plan of care. No further questions noted by the patient. Critical care attestation.: If time is entered above; I have spent that time in minutes in the direct care of this critically ill patient, excluding procedure time. ED Disposition Clinical Impression: Cyst Disposition: DC-01 TO HOME OR SELFCARE Is pt being admited?: No Does the pt Need Aspirin: No Condition: Stable Additional Instructions: Follow-up with a primary care doctor in 3-5 days or if symptoms worsen and continue return to emergency room as soon as possible. Referrals: PRIMARY MD VJ [Referring] - 3-5 Days KAY HODGES MD [Staff Physician] - 3-5 Days Time of Disposition: 07:19
== END 2020-04-28 07:59 | disposition home or self-care (01) ==
LOC: ED 06:29
DX: L72.0 Epidermal cyst (principal); Z79.899 Other long term (current) drug therapy
CPT/HCPCS: 99281

== ENCOUNTER 2021-08-21 13:31 | Emergency (ER) | payer OTHER ==
[2021-08-21 13:41] VITALS: BP 179/100
[2021-08-21] MEDS ORDERED: BUTALB/ACETAMINOPHEN/CAFFEINE TAB PO ONE (15:28)
[2021-08-21] MEDS ORDERED: KETOROLAC 30 MG/1 ML INJ IM ONE (15:28)
--- NOTE | 2021-08-21 18:41 | Cat Scan Report ---
CT head/brain wo con INDICATION: head injury - headache. TECHNIQUE: Routine CT head. All CT scans at this location are performed using CT dose reduction for A TRINITY by means of automated exposure control. COMPARISON: 03/04/2020 FINDINGS: Intracranial: Graff-white matter differentiation is maintained. No intracranial hemorrhage. No extra a xial collection. No hydrocephalus. No herniation. Sinuses: Paranasal sinuses and mastoid air cells are essentially clear. Orbits: Globes are intact. Calvarium: No acute fracture. IMPRESSION: 1. No acute intracranial abnormality. Signer Name: Lester Nettles MD Signed: 08/21/2021 6:36 PM Workstation Name: [id number]
--- NOTE | 2021-08-21 19:06 | Emergency Department Report ---
ED Headache HPI - General Chief Complaint: Headache Stated Complaint: HEADACHES/FEVER/BLOODY NOSE/ Source: patient Exam Limitations: no limitations - History of Present Illness Initial Comments: Patient is a 35-year-old -L[place] male with no past medical history presents to the ED with complaint of persistent parietal pressure-like headache for the last 1 week after he accidentally bumped his head against the door of his [employer] truck. Patient states that he has been taking [id number] medication with no relief. Patient states that the pain is especially worse with blurry vision and nausea. The patient denies dizziness, syncope, chest pain or shortness of breath, neck pain, fall, change in speech, loss of consciousness, numbness and tingling or weakness of upper and lower extremities bilaterally. Timing/Duration: 1 week Quality: severe, constant, pressure, sharp Head Injury Location: parietal Recent Head Trauma: head trauma > 24 hrs ago (hit head against door of truck) Associated Symptoms: denies symptoms. denies: confusion, fatigue, facial pain, fever/chills, flushing, nausea/vomiting, nasal congestion, nasal drainage, rash, seizures, sinus infection, stiff neck, vision changes, weakness Allergies/Adverse Reactions: Allergies No Known Allergies Allergy (Verified 08/21/21 13:41) Home Medications: Ambulatory Orders Ciprofloxacin HCl [Ciprofloxacin TAB] 500 mg PO Q12HR #10 tab 08/24/19 Ibuprofen [Motrin] 600 mg PO Q8H PRN #20 tablet 11/17/19 Azithromycin [Zithromax] 250 mg PO DAILY 5 Days tablet 03/04/20 methylPREDNISolone [Medrol 4MG DOSEPAK (21 tabs)] 4 mg PO DAILY #1 tab.ds.pk 03/04/20 Butalb/Acetamin/Caff 50-325-40 [Fioricet 50-325-40] 1 - 2 tab PO Q8HR PRN #15 tablet 08/21/21 Ketorolac [Toradol] 10 mg PO Q8H PRN #20 tab 08/21/21 Ondansetron [Zofran Odt] 4 mg PO Q8HR PRN #15 tab.rapdis 08/21/21 ED Review of Systems ROS: Stated complaint: HEADACHES/FEVER/BLOODY NOSE/ Other details as noted in HPI Constitutional: denies: chills, fever Eyes: denies: eye pain, eye discharge, vision change ENT: denies: ear pain, throat pain Respiratory: denies: cough, shortness of breath, wheezing Cardiovascular: denies: chest pain, palpitations Endocrine: no symptoms reported Gastrointestinal: nausea. denies: abdominal pain, vomiting, diarrhea Genitourinary: denies: urgency, dysuria Musculoskeletal: denies: back pain, joint swelling, arthralgia Skin: denies: rash, lesions Neurological: headache. denies: weakness, paresthesias Psychiatric: denies: anxiety, depression Hematological/Lymphatic: denies: easy bleeding, easy bruising ED Past Medical Hx - Past Medical History Hx HIV: No - Social History Smoking Status: Never Smoker Substance Use Type: None - Medications Home Medications: Home Medications Medication Instructions Recorded Confirmed Last Taken Type Ciprofloxacin HCl [Ciprofloxacin 500 mg PO Q12HR #10 tab 08/24/19 Unknown Rx TAB] Ibuprofen [Motrin] 600 mg PO Q8H PRN #20 tablet 11/17/19 Unknown Rx Azithromycin [Zithromax] 250 mg PO DAILY 5 Days tablet 03/04/20 Unknown Rx methylPREDNISolone [Medrol 4MG 4 mg PO DAILY #1 tab.ds.pk 03/04/20 Unknown Rx DOSEPAK (21 tabs)] Butalb/Acetamin/Caff 50-325-40 1 - 2 tab PO Q8HR PRN #15 tablet 08/21/21 Unknown Rx [Fioricet 50-325-40] Ketorolac [Toradol] 10 mg PO Q8H PRN #20 tab 08/21/21 Unknown Rx Ondansetron [Zofran Odt] 4 mg PO Q8HR PRN #15 tab.rapdis 08/21/21 Unknown Rx ED Physical Exam - General Limitations: No Limitations General appearance: alert, in no apparent distress - Head Head exam: Present: atraumatic, normocephalic, normal inspection - Eye Eye exam: Present: normal appearance, PERRL, EOMI Pupils: Present: normal accommodation - ENT ENT exam: Present: normal exam, normal orophraynx, mucous membranes moist, TM's normal bilaterally, normal external ear exam - Neck Neck exam: Present: normal inspection, full ROM. Absent: tenderness - Respiratory Respiratory exam: Present: normal lung sounds bilaterally. Absent: respiratory distress - Cardiovascular Cardiovascular Exam: Present: regular rate, normal rhythm. Absent: systolic murmur, diastolic murmur, rubs, gallop - GI/Abdominal GI/Abdominal exam: Present: soft, normal bowel sounds - Rectal Rectal exam: Present: deferred - Extremities Exam Extremities exam: Present: normal inspection - Back Exam Back exam: Present: normal inspection - Neurological Exam Neurological exam: Present: alert, oriented X3 - Psychiatric Psychiatric exam: Present: normal affect, normal mood - Skin Skin exam: Present: warm, dry, intact, normal color. Absent: rash ED Course Vital Signs 08/21/21 13:39 Temperature 97.7 F Pulse Rate 76 Respiratory 18 Rate Blood Pressure 179/100 [Left] O2 Sat by Pulse 99 Oximetry ED Medical Decision Making - Radiology Data Radiology results: report reviewed, [place] [address] Cat Scan Report Signed Patient: AYESHA GARCIA MR#: [id number] : 1985 Acct:[id number] Age/Sex: 35 / M ADM Date: 08/21/21 Loc: ED Attending Dr: Ordering Physician: PETE HERNANDEZ Date of Service: 08/21/21 Procedure(s): CT head/brain wo con Accession Number(s): [id number] cc: PETE HERNANDEZ CT head/brain wo con INDICATION: head injury - headache. TECHNIQUE: Routine CT head. All CT scans at this location are performed using CT dose reduction for ALARA by means of automated exposure control. COMPARISON: 03/04/2020 FINDINGS: Intracranial: Graff-white matter differentiation is maintained. No intracranial hemorrhage. No extra axial collection. No hydrocephalus. No herniation. Sinuses: Paranasal sinuses and mastoid air cells are essentially clear. Orbits: Globes are intact. Calvarium: No acute fracture. IMPRESSION: 1. No acute intracranial abnormality. Signer Name: Lester Nettles MD Signed: 08/21/2021 6:36 PM Workstation Name: [id number] Transcribed By: SWETHA Dictated By: Lester Nettles MD Electronically Authenticated By: Lester Nettles MD Signed Date/Time: 08/21/211835 DD/ 35 TD/TT: - Medical Decision Making This is a 35-year-old -[place] male with no past medical history presents to the ED with complaint of persistent parietal pressure-like headache for the last 1 week after he accidentally bumped his head against the door of his [employer] truck. Patient states that he has been taking [id number] medication with no relief. Patient states that the pain is especially worse with blurry vision and nausea. In the ED, patient is alert and oriented x3 and is not in any distress. Patient was treated for pain in the ED. Head CT scan without contrast showed no acute intracranial abnormalities or hemorrhage. On reevaluation, patient's headache resolved and patient was discharged home on medications and advised to follow-up with his primary care physician in 5 to 7 days for reevaluation or return to the ED immediately if symptoms get worse. - Differential Diagnosis Tension headache; posttraumatic headache; cluster headache; Critical care attestation.: If time is entered above; I have spent that time in minutes in the direct care of this critically ill patient, excluding procedure time. ED Disposition Clinical Impression: Contusion of scalp, initial encounter Tension-type headache Qualifiers: Headache chronicity pattern: acute headache Intractability: not intractable Qualified Code(s): G44.209 - Tension-type headache, unspecified, not intractable Head injury without skull fracture Qualifiers: Encounter type: initial encounter Qualified Code(s): S09.90XA - Unspecified injury of head, initial encounter Head injury, closed, with concussion Qualifiers: Encounter type: initial encounter Loss of consciousness presence/duration: without LOC Qualified Code(s): S06.0X0A - Concussion without loss of consciousness, initial encounter Disposition: 01 HOME / SELF CARE / HOMELESS Is pt being admited?: No Does the pt Need Aspirin: No Condition: Stable Instructions: Concussion, Adult, Ywso-jw-[id number], Tension Headache, Adult, Gkul-dx-Zory, Facial or Scalp Contusion, Tzsn-ci-Gsen, General Headache Without Cause, Ctjv-ba-Depm Additional Instructions: The head CT scan without contrast showed no acute intracranial abnormalities or hemorrhage. Therefore take medication with food, drink plenty of fluids and follow-up with your primary care physician in 7 to 10 days for reevaluation. Return to the ED immediately if symptoms get worse. Prescriptions: Butalb/Acetamin/Caff 50-325-40 [Fioricet 50-325-40] 1 - 2 tab PO Q8HR PRN #15 tablet PRN Reason: Headache Ketorolac [Toradol] 10 mg PO Q8H PRN #20 tab PRN Reason: Pain Ondansetron [Zofran Odt] 4 mg PO Q8HR PRN #15 tab.rapdis PRN Reason: Nausea Referrals: [facility] [Provider Group] - 7-10 days Forms: Work/School Release Form(ED) Time of Disposition: 19:04 Print Language: BARBADIAN
== END 2021-08-21 19:20 | disposition home or self-care (01) ==
LOC: ED 13:31
DX: S00.03XA Contusion of scalp, initial encounter (principal); G44.209 Tension-type headache, unspecified, not intractable; Z79.899 Other long term (current) drug therapy; W22.8XXA Striking against or struck by other objects, initial encounter; Y93.89 Activity, other specified; Y92.89 Other specified places as the place of occurrence of the external cause; Y99.8 Other external cause status
CPT/HCPCS: 70450; 96372; 99283; J1885

== ENCOUNTER 2021-10-10 09:25 | Emergency (ER) | payer OTHER ==
[2021-10-10 09:56] VITALS: BP 140/97
== END 2021-10-10 12:31 | disposition left against medical advice (07) ==
LOC: ED 09:25
DX: R05.9 Cough, unspecified (principal); R07.81 Pleurodynia; Z53.21 Procedure and treatment not carried out due to patient leaving prior to being seen by health care provider